=== PATIENT | male | born 1985 ===

== ENCOUNTER 2018-02-03 12:03 | Emergency (ER) | payer SELFPAY ==
[~2018-02-03] VITALS: Ht 177.8 cm; Wt 147.4 kg
--- NOTE | 2018-02-03 12:22 | NUR ---
Dr Avila at the bedside for MSE.
[2018-02-03] MEDS ORDERED: DEXAMETHASONE SOD PHOSPHATE 10 MG INJ ONE (12:37)
[2018-02-03] MEDS ORDERED: PENICILLIN G BENZATHINE 2.4 MMU/4 ML DISP.SYRIN IM ONE ×2 (12:38→12:45)
[2018-02-03] MEDS ORDERED: DEXAMETHASONE SOD PHOSPHATE 4 MG INJ IV ONE (12:45)
[2018-02-03 12:48] VITALS: BP 148/88
--- NOTE | 2018-02-03 12:49 | NUR ---
Patient discharged to home in stable conditon. Written and verbal after care instructions given. Patient verbalizes understanding of instructions.
== END 2018-02-03 12:50 | disposition home or self-care (01) ==
LOC: ER 12:05
DX: J02.0 Streptococcal pharyngitis (principal)
CPT/HCPCS: 96372; 99283; J1100; A4663